=== PATIENT | male | born 1950 | race Caucasian/White ===

== ENCOUNTER 2017-05-28 13:56 | Outpatient (CLI) ==
[2017-05-28 14:07] LABS: BASOPHILS # (AUTO) 0.1 K/uL (0-0.2); BASOPHILS % (AUTO) 1.2 % (0.0-3.0); EOSINOPHILS # (AUTO) 0.3 K/ul (0.0-0.7); HEMATOCRIT 48.7 % (42.0-52.0); HEMOGLOBIN 16.8 g/dl (14.0-18.0); IMMATURE GRANULOCYTE % (AUTO) 0.9 % (0.0-5.0); LYMPHOCYTES # (AUTO) 1.5 K/uL (0.60-3.4); LYMPHOCYTES % (AUTO) 21.6 (10.0-50.0); MEAN CORPUSCULAR HEMOGLOBIN 28.8 pg (27.0-31.0); MEAN CORPUSCULAR HGB CONC 34.5 (31.8-35.4); MEAN CORPUSCULAR VOLUME 83.4 fl (80.0-94.0); MONOCYTES # (AUTO) 0.7 K/uL (0.4-2.0); MONOCYTES % (AUTO) 9.9 (0-10); NEUTROPHILS # (AUTO) 4.3 K/ul (2.0-6.9); NEUTROPHILS % (AUTO) 62.4; PLATELET COUNT 194 10^3/uL (140-440); RED BLOOD COUNT 5.84 10^6/ul (4.70-6.10); WHITE BLOOD COUNT 6.95 K/ul (4.2-10.2)
[2017-05-28 14:42] LABS: ALBUMIN 4.4 g/dL (3.4-5.0); ALBUMIN/GLOBULIN RATIO 1.22; ANION GAP 16.7; BILIRUBIN,TOTAL 1.06 mg/dL (0.00-1.20); BUN/CREATININE RATIO 12.61; CALCIUM 10.1 mg/dL (8.2-10.2); CREATININE 1.11 mg/dL (0.60-1.10); POTASSIUM 3.7 mmol/L (3.5-5.1)
== END 2017-05-28 13:57 | disposition home or self-care (01) ==
LOC: LAB 13:56
PROVIDERS: ATTEND Emergency Medicine
DX: E03.9 Hypothyroidism, unspecified (principal); I10 Essential (primary) hypertension
CPT/HCPCS: 36415; 80053; 80061; 84443; 85025